=== PATIENT | male | born 2000 | race Caucasian/White ===

== ENCOUNTER 2019-07-12 23:59 | Emergency (ER) | payer OTHER ==
[~2019-07-12] VITALS: Ht 177.8 cm; Wt 64.0 kg
[2019-07-13] VITALS: BP 148/75
--- NOTE | 2019-07-13 00:03 | NUR ---
TO LOBBY A/W BED AMBULATORY
--- NOTE | 2019-07-13 00:39 | NUR ---
PT AMBULATED TO BED 09
--- NOTE | 2019-07-13 00:45 | NUR ---
18 YO M BIB SELF C/O FLU S/SX X 4 DAYS WITH 6/10 BODY ACHES, CHILLS AND COUGH. DENIES NVD. AFEBRILE AT THIS TIME, REPORTS INTERMITTENT SUBJECTIVE FEVER. NO COUGH HEARD AT THIS TIME. LUNGS CTA. MEDICATED AT HOME WITH TYLENOL WITH TEMPORARY RELIEF. [facility]-- DENIES RX-- TYLENOL @ 1400
--- NOTE | 2019-07-13 01:35 | NUR ---
CRITICAL LAB: +FLU B, ERMD NOTIFIED
[2019-07-13 02:10] VITALS: BP 110/66
--- NOTE | 2019-07-13 02:11 | NUR ---
Patient discharged with v/s stable. Written and verbal after care instructions given and explained. Patient alert, oriented and verbalized understanding of instructions. Ambulatory with steady gait. All questions addressed prior to discharge. ID band removed. Patient advised to follow up with PMD. Rx of PROMETHAZINE, MOTRIN given. Patient educated on indication of medication including possible reaction and side effects. Opportunity to ask questions provided and answered.
--- NOTE | 2019-07-14 00:45 | NUR ---
Note undone in EDM - 07/14/19 at 0646 by [facility] 18 YO M BIB SELF C/O FLU S/SX X 4 DAYS WITH 6/10 BODY ACHES, CHILLS AND COUGH. DENIES NVD. AFEBRILE AT THIS TIME, REPORTS INTERMITTENT SUBJECTIVE FEVER. NO COUGH HEARD AT THIS TIME. LUNGS CTA. MEDICATED AT HOME WITH TYLENOL WITH TEMPORARY RELIEF. [facility]-- DENIES RX-- TYLENOL @ 1400
== END 2019-07-13 01:50 | disposition home or self-care (01) ==
LOC: MED 23:59
DX: J10.1 Influenza due to other identified influenza virus with other respiratory manifestations (principal)
CPT/HCPCS: 71045; 87804; 99284; Q0092